=== PATIENT | male | born 1940 | race Caucasian/White ===

== ENCOUNTER → 2020-07-01 | Outpatient (CLI) | payer MEDICARE ==
--- NOTE | 2020-07-01 15:08 | REP ---
INDICATION: CLAUDICATION COMPARISON: None. TECHNIQUE: Real time diaz scale and color Doppler evaluation of the bilateral lower extremity arterial vasculature using linear high frequency transducer. FINDINGS: Diaz scale and color images demonstrate bilateral mild to moderate amounts of partially calcified atheromatous plaquing with areas of minimal narrowing but no focal stenosis identified. Doppler interrogation demonstrates predominantly bilateral biphasic and triphasic wave patterns although monophasic wave patterns are noted in the right anterior tibial artery and proximal posterior tibial artery as well as the left posterior tibial artery and distal anterior tibial artery. Left BRITTNEY: 1.4 Right BRITTNEY: Not obtainable Peak systolic velocities (cm/sec) Common femoral artery: Right 79; Left 83 Profunda femoris: Right 90; Left 73 SFA (proximal): Right 75; Left 83 SFA (mid): Right 101; Left 83-134 SFA (distal): Right 114; Left 100-136 Popliteal artery: Right 50; Left 57 JAMA (prox.): Right 66; Left 45 Tibioperoneal trunk: Right 102; Left 71 STRADDLE TRUCK OPERATOR (prox.): Right 29; Left 37 STRADDLE TRUCK OPERATOR (distal): Right 45; Left 31 JAMA (distal): Right 93; Left 101 IMPRESSION: [id number] partially calcified atheromatous changes with areas of narrowing but no obvious focal occlusion or stenosis. <Electronically signed by Mau Galo > 07/01/20 [id number]
== END ==
LOC: M RAD 13:10
PROVIDERS: ATTEND Physician Assistant
DX: I73.9 Peripheral vascular disease, unspecified (principal)

== ENCOUNTER 2022-08-08 10:51 | Inpatient (IN) | payer MEDICARE ==
[~2022-08-08] VITALS: Ht 177.8 cm; Wt 98.3 kg
[2022-08-08] VITALS (65 sets, daily range): BP systolic 64–165; BP diastolic 39–116; O2SAT 93
[2022-08-08] MEDS: NOREPINEPHRINE 4MG IN D5 250ML 4 MG in IV 1 EA IV SCH ×2 (15:15)
[2022-08-08] MEDS ORDERED: ACETAMINOPHEN TAB 650MG DOSE (2X325MG) PO PRN (15:20)
[2022-08-08 15:39] LABS: HEMATOCRIT 32.8 % (42.0-52.0); HEMOGLOBIN 10.3 g/dl (13.5-17.5); MEAN CORPUSCULAR HEMOGLOBIN 30.6 pg (27.0-33.0); MEAN CORPUSCULAR HGB CONC 31.4 g/dl (32.0-36.5); MEAN CORPUSCULAR VOLUME 97.3 fl (80.0-96.0); RED BLOOD COUNT 3.37 10^6/uL (4.30-6.10); WHITE BLOOD COUNT 4.7 10^3/uL (4.0-10.0)
[2022-08-08 15:55] LABS: BILIRUBIN,TOTAL 0.6 MG/DL (0.3-1.2); CALCIUM LEVEL 8.7 MG/DL (8.3-10.6); CREATININE FOR GFR 3.06 MG/DL (0.70-1.30); GLOMERULAR FILTRATION RATE 20.9 (>35); TOTAL PROTEIN 5.7 G/DL (5.7-8.2)
[2022-08-08 16:36] LABS: MAGNESIUM LEVEL 2.2 MG/DL (1.8-2.4)
[2022-08-08 16:41] LABS: PLATELET COUNT, AUTOMATED 72 10^3/uL (150-450)
[2022-08-08] MEDS ORDERED: FOLI1TAB11 PO (17:40)
[2022-08-08] MEDS ORDERED: D3 H2000 PO (17:40)
[2022-08-08] MEDS ORDERED: LEVO88TA3 PO (17:40)
[2022-08-08] MEDS ORDERED: SYST1SOL4 OU (17:40)
[2022-08-08] MEDS ORDERED: ACE65ERTAB PO (17:40)
[2022-08-08] MEDS ORDERED: ASPI81TA26 PO (17:40)
[2022-08-08] MEDS ORDERED: ROPI0.5T3 PO (17:40)
[2022-08-08] MEDS ORDERED: GUAI100L6 PO (17:40)
[2022-08-08] MEDS ORDERED: B-12100021 PO (17:40)
[2022-08-08] MEDS ORDERED: ELIQ2.5T PO (17:40)
[2022-08-08] MEDS ORDERED: FERR325T3 PO (17:40)
[2022-08-08] MEDS ORDERED: ALLO100T PO (17:40)
[2022-08-08] MEDS ORDERED: MELA3TAB29 PO (17:40)
[2022-08-08] MEDS ORDERED: MM S100C PO (17:40)
[2022-08-08] MEDS: MEROPENEM INJ 1 GM in IV 1 EA IV SCH (17:45)
[2022-08-08] MEDS: MIDODRINE 5 MG TAB PO SCH (17:46)
[2022-08-08] MEDS ORDERED: HOME MED LIST COMPLETE! XX SCH (17:50)
[2022-08-08] MEDS ORDERED: MIDAZOLAM INJ 2MG/2ML VIAL As Ordered ONE (17:58)
[2022-08-08] MEDS ORDERED: LIDOCAINE 1% MDV 20ML VIAL As Ordered ONE (17:59)
[2022-08-08] MEDS ORDERED: VANCOMYCIN HCL 1,000 MG, VIAL MATE ADAPTER 1 EACH in D5W 250 ML IV ONE (18:00)
[2022-08-08] MEDS ORDERED: LIDOCAINE 1% MDV 20ML VIAL SC ONE (18:15)
[2022-08-08] MEDS ORDERED: MIDAZOLAM INJ 2MG/2ML VIAL IV ONE (18:15)
[2022-08-08] MEDS ORDERED: flumazeniL 0.5MG/5ML VIAL As Ordered ONE (19:27)
[2022-08-08] MEDS ORDERED: ONDANSETRON 4MG 2ML VIAL IV PRN (20:25)
[2022-08-08] MEDS ORDERED: PERCOCET 5MG/325MG TAB PO PRN ×2 (20:25)
[2022-08-08] MEDS ORDERED: LEVALBUTEROL 1.25MG/3ML NEB SOLN NEB PRN (20:25)
[2022-08-08] MEDS ORDERED: KCL 20MEQ IN D5/NS 1000ML 1,000 ML IV SCH (20:25)
[2022-08-08] MEDS ORDERED: BISACODYL 10MG SUPP PR PRN (20:25)
[2022-08-08] MEDS: APIXABAN 2.5 MG TAB (ELIQUIS) PO SCH (21:00)
[2022-08-08] MEDS: DOCUSATE SODIUM 100MG CAPSULE PO SCH (21:00)
[2022-08-08] MEDS: allopurinoL 100 MG TAB PO SCH (21:00)
[2022-08-08] MEDS: PANTOPRAZOLE 40MG VIAL IV SCH (21:00)
[2022-08-08] MEDS: rOPINIRole 0.25 MG TAB(REQUIP) PO SCH (21:00)
[2022-08-08 21:15] LABS: PH BODY FLUID 7.448 UNITS (NOT ESTABLISHED); SOURCE, BODY FLUID pH PLEURAL
[2022-08-08 21:16] LABS: BASO # 0.1 10^3/uL (0.0-0.2); BASO % 1.5 % (0.0-1.0); EOS # 0.2 10^3/uL (0.0-0.5); EOS % 3.6 % (0.0-3.0); HEMATOCRIT 32.9 % (42.0-52.0); HEMOGLOBIN 10.3 g/dl (13.5-17.5); LYMPH # 0.6 10^3/uL (1.5-5.0); LYMPH % 9.4 % (24.0-44.0); MEAN CORPUSCULAR HEMOGLOBIN 30.3 pg (27.0-33.0); MEAN CORPUSCULAR HGB CONC 31.3 g/dl (32.0-36.5); MEAN CORPUSCULAR VOLUME 96.8 fl (80.0-96.0); MONO # 0.5 10^3/uL (0.0-0.8); MONO % 8.1 % (2.0-8.0); NEUTROPHILS # 4.5 10^3/uL (1.5-8.5); NEUTROPHILS % 76.7 % (36.0-66.0); WHITE BLOOD COUNT 5.8 10^3/uL (4.0-10.0)
[2022-08-08 21:17] LABS: APPEARANCE, BODY FLUID TURBID (CLEAR); PLEURAL FL COLOR RED (COLORLESS); SOURCE, BODY FLUID PLEURAL
[2022-08-08 21:18] LABS: PLATELET COUNT, AUTOMATED 97 10^3/uL (150-450)
[2022-08-08] MEDS ORDERED: flumazeniL 0.5MG/5ML VIAL IV STA (21:18)
[2022-08-08] MEDS ORDERED: NS 250 ML IV ONE (21:25)
[2022-08-08 21:30] LABS: SOURCE, BODY FLUID ALBUMIN PLEURAL
[2022-08-08 21:35] LABS: SOURCE, BODY FLUID GLUCOSE PLEURAL
[2022-08-08 21:36] LABS: SOURCE, BODY FLUID TRIG PLEURAL; TRIGLYCERIDE, BODY FLUID 14.99999 MG/DL (NOT ESTABLISHED)
[2022-08-08 21:37] LABS: AMYLASE, BODY FLUID 38 U/L (NOT ESTABLISHED); LDH, BODY FLUID 137 U/L (NOT ESTABLISHED); SOURCE, BODY FLUID AMYLASE PLEURAL; SOURCE, BODY FLUID LDH PLEURAL
[2022-08-08 21:38] LABS: ALBUMIN 1.9 G/DL (3.2-5.2); BILIRUBIN,TOTAL 0.6 MG/DL (0.3-1.2); CALCIUM LEVEL 8.5 MG/DL (8.3-10.6); CHOLESTEROL, BODY FLUID < 25 MG/DL (NOT ESTABLISHED); CREATININE FOR GFR 3.14 MG/DL (0.70-1.30); GLOMERULAR FILTRATION RATE 20.3 (>35); POTASSIUM SERUM 5.1 MMOL/L (3.5-5.1); SOURCE, BODY FLUID CHOL PLEURAL; SOURCE, BODY FLUID TOT PROTEIN PLEURAL; TOTAL PROTEIN 5.6 G/DL (5.7-8.2); TOTAL PROTEIN, BODY FLUID < 2.0 G/DL (NOT ESTABLISHED)
[2022-08-08 22:40] LABS: ABG BASE EXCESS -7.9 (-2.0-2.0); ABG HCO3 15.3 MMOL/L (22.0-26.0); ABG O2 SATURATION 94.1 % (95.0-99.0); ABG PARTIAL PRESSURE CO2 25.1 mmHg (35.0-45.0); ABG PARTIAL PRESSURE O2 71.5 mmHg (75.0-100.0); ABG TOTAL CO2 16.1 MMOL/L (23.0-31.0); ABG pH (ARTERIAL) 7.404 UNITS (7.350-7.450)
[2022-08-09] VITALS (97 sets, daily range): BP systolic 71–178; BP diastolic 46–90
[2022-08-09] MEDS: LEVALBUTEROL 1.25MG/3ML NEB SOLN NEB SCH ×4 (01:13→19:19)
[2022-08-09] MEDS: LIDOCAINE 5% (LIDODERM) PATCH TD SCH ×2 (03:22→08:24)
[2022-08-09 05:31] LABS: BASO # 0.1 10^3/uL (0.0-0.2); BASO % 1.2 % (0.0-1.0); EOS # 0.2 10^3/uL (0.0-0.5); EOS % 2.2 % (0.0-3.0); HEMATOCRIT 32.1 % (42.0-52.0); HEMOGLOBIN 10.1 g/dl (13.5-17.5); LYMPH # 0.7 10^3/uL (1.5-5.0); MEAN CORPUSCULAR HEMOGLOBIN 30.6 pg (27.0-33.0); MEAN CORPUSCULAR HGB CONC 31.5 g/dl (32.0-36.5); MEAN CORPUSCULAR VOLUME 97.3 fl (80.0-96.0); MONO # 0.7 10^3/uL (0.0-0.8); MONO % 10.2 % (2.0-8.0); NEUTROPHILS # 5.5 10^3/uL (1.5-8.5); NEUTROPHILS % 75.7 % (36.0-66.0); PLATELET COUNT, AUTOMATED 106 10^3/uL (150-450); WHITE BLOOD COUNT 7.2 10^3/uL (4.0-10.0)
[2022-08-09] MEDS: MEROPENEM INJ 1 GM in IV 1 EA IV SCH ×2 (05:35→16:27)
[2022-08-09 05:38] LABS: ABG BASE EXCESS -8.3 (-2.0-2.0); ABG HCO3 15.2 MMOL/L (22.0-26.0); ABG O2 SATURATION 98.1 % (95.0-99.0); ABG PARTIAL PRESSURE CO2 25.8 mmHg (35.0-45.0); ABG PARTIAL PRESSURE O2 109.8 mmHg (75.0-100.0); ABG STANDARD HCO3 17.7 MMOL/L. (22.0-26.0); ABG pH (ARTERIAL) 7.388 UNITS (7.350-7.450)
[2022-08-09 05:53] LABS: CALCIUM LEVEL 8.3 MG/DL (8.3-10.6); CREATININE FOR GFR 3.31 MG/DL (0.70-1.30); GLOMERULAR FILTRATION RATE 19.1 (>35); POTASSIUM SERUM 5.1 MMOL/L (3.5-5.1)
[2022-08-09] MEDS: LEVOTHYROXINE 88MCG TABLET (0.088 MG) PO SCH (06:00)
[2022-08-09 07:34] LABS: VANCOMYCIN RANDOM 20.3 UG/ML
[2022-08-09] MEDS ORDERED: AMIODARONE HCL 150 MG in IV 1 EA IV ONE (08:00)
[2022-08-09] MEDS: FOLIC ACID 1MG TAB PO SCH ×2 (08:24→08:49)
[2022-08-09] MEDS: MOM 30ML SUSPENSION UDC PO SCH ×2 (08:24→08:49)
[2022-08-09] MEDS: DOCUSATE SODIUM 100MG CAPSULE PO SCH ×3 (08:24→21:00)
[2022-08-09] MEDS: PANTOPRAZOLE 40MG VIAL IV SCH (08:24)
[2022-08-09] MEDS: FERROUS SULFATE 325MG TAB PO SCH ×2 (08:24→08:49)
[2022-08-09] MEDS: allopurinoL 100 MG TAB PO SCH ×3 (08:24→21:00)
[2022-08-09] MEDS: MIDODRINE 5 MG TAB PO SCH ×3 (08:25→15:53)
[2022-08-09] MEDS: APIXABAN 2.5 MG TAB (ELIQUIS) PO SCH ×2 (08:25→21:00)
[2022-08-09] MEDS: ASPIRIN 81MG ENTERIC TABLET PO SCH (08:25)
[2022-08-09] MEDS ORDERED: AMIODARONE HCL 360 MG in IV 1 EA IV SCH (08:30)
[2022-08-09] MEDS ORDERED: VANCOMYCIN HCL 1,000 MG, VIAL MATE ADAPTER 1 EACH in D5W 250 ML IV SCH (09:00)
[2022-08-09] MEDS ORDERED: VANCOMYCIN INTERMITTENT/PULSE DOSING BY CLINICAL PHARMACIST PER DOSING PROTOCOL XX SCH (12:40)
[2022-08-09] MEDS: AMIODARONE HCL 360 MG in IV 1 EA IV SCH (15:01)
[2022-08-09] MEDS ORDERED: VANCOMYCIN HCL 1,000 MG, VIAL MATE ADAPTER 1 EACH in D5W 250 ML IV ONE (18:00)
[2022-08-09] MEDS: rOPINIRole 0.25 MG TAB(REQUIP) PO SCH (21:00)
[2022-08-10] VITALS (28 sets, daily range): BP systolic 80–135; BP diastolic 49–79
[2022-08-10] MEDS: AMIODARONE HCL 360 MG in IV 1 EA IV SCH (02:35)
[2022-08-10] MEDS: LEVALBUTEROL 1.25MG/3ML NEB SOLN NEB SCH ×2 (02:55→07:33)
[2022-08-10] MEDS: NOREPINEPHRINE 4MG IN D5 250ML 4 MG in IV 1 EA IV SCH ×2 (04:15)
[2022-08-10] MEDS: MEROPENEM INJ 1 GM in IV 1 EA IV SCH (04:49)
[2022-08-10 05:09] LABS: BASO # 0.1 10^3/uL (0.0-0.2); BASO % 0.6 % (0.0-1.0); EOS # 0.2 10^3/uL (0.0-0.5); EOS % 2.7 % (0.0-3.0); HEMATOCRIT 31.5 % (42.0-52.0); LYMPH # 0.6 10^3/uL (1.5-5.0); LYMPH % 7.9 % (24.0-44.0); MEAN CORPUSCULAR HGB CONC 31.7 g/dl (32.0-36.5); MEAN CORPUSCULAR VOLUME 97.5 fl (80.0-96.0); MONO # 0.5 10^3/uL (0.0-0.8); NEUTROPHILS # 6.5 10^3/uL (1.5-8.5); NEUTROPHILS % 82.3 % (36.0-66.0); RED BLOOD COUNT 3.23 10^6/uL (4.30-6.10); WHITE BLOOD COUNT 7.8 10^3/uL (4.0-10.0)
[2022-08-10 05:10] LABS: PLATELET COUNT, AUTOMATED 97 10^3/uL (150-450)
[2022-08-10 05:40] LABS: CALCIUM LEVEL 8.3 MG/DL (8.3-10.6); CREATININE FOR GFR 3.48 MG/DL (0.70-1.30); POTASSIUM SERUM 4.5 MMOL/L (3.5-5.1)
[2022-08-10] MEDS: LEVOTHYROXINE 88MCG TABLET (0.088 MG) PO SCH (06:21)
[2022-08-10] MEDS: ASPIRIN 81MG ENTERIC TABLET PO SCH (08:58)
[2022-08-10] MEDS: PANTOPRAZOLE 40MG VIAL IV SCH (08:58)
[2022-08-10] MEDS: APIXABAN 2.5 MG TAB (ELIQUIS) PO SCH (08:58)
[2022-08-10] MEDS: DOCUSATE SODIUM 100MG CAPSULE PO SCH (08:59)
[2022-08-10] MEDS: MIDODRINE 5 MG TAB PO SCH ×2 (08:59→12:54)
[2022-08-10] MEDS: allopurinoL 100 MG TAB PO SCH (08:59)
[2022-08-10] MEDS ORDERED: AMIODARONE 200 MG TAB (PACERONE) PO SCH (09:00)
[2022-08-10] MEDS: MOM 30ML SUSPENSION UDC PO SCH (09:00)
[2022-08-10] MEDS: FOLIC ACID 1MG TAB PO SCH (09:41)
[2022-08-10] MEDS: FERROUS SULFATE 325MG TAB PO SCH (09:41)
[2022-08-10] MEDS: LIDOCAINE 5% (LIDODERM) PATCH TD SCH (09:42)
[2022-08-10] MEDS ORDERED: ATIV1TAB10 PO ×2 (11:11→13:04)
[2022-08-10] MEDS ORDERED: MORP1SOL5 PO ×2 (11:11→13:04)
[2022-08-10] MEDS ORDERED: HYOS125TA PO ×2 (11:11→13:04)
== END 2022-08-10 13:07 | disposition hospice, home (50) | DRG 871 ==
LOC: M ICU 15:02
PROVIDERS: ADMIT Internal Medicine Pulmonary Disease; ATTEND Internal Medicine
PROC: 0W9900Z Drainage of Right Pleural Cavity with Drainage Device, Open Approach (ICD-10-PCS; 2022-08-08)
PROC: B246ZZZ Ultrasonography of Right and Left Heart (ICD-10-PCS; principal; 2022-08-09)
DX: A41.9 Sepsis, unspecified organism (principal); R65.21 Severe sepsis with septic shock; R57.0 Cardiogenic shock; K76.7 Hepatorenal syndrome; J18.9 Pneumonia, unspecified organism; I13.0 Hypertensive heart and chronic kidney disease with heart failure and stage 1 through stage 4 chronic kidney disease, or unspecified chronic kidney disease; R18.8 Other ascites; N17.9 Acute kidney failure, unspecified; J90 Pleural effusion, not elsewhere classified; L97.329 Non-pressure chronic ulcer of left ankle with unspecified severity; L97.319 Non-pressure chronic ulcer of right ankle with unspecified severity; E87.4 Mixed disorder of acid-base balance; E46 Unspecified protein-calorie malnutrition; I48.91 Unspecified atrial fibrillation; I50.9 Heart failure, unspecified; K74.60 Unspecified cirrhosis of liver; E03.9 Hypothyroidism, unspecified; I35.0 Nonrheumatic aortic (valve) stenosis; Z66 Do not resuscitate; N18.30 Chronic kidney disease, stage 3 unspecified; M10.9 Gout, unspecified; I87.2 Venous insufficiency (chronic) (peripheral); R04.0 Epistaxis; I27.29 Other secondary pulmonary hypertension; Z85.528 Personal history of other malignant neoplasm of kidney; K72.90 Hepatic failure, unspecified without coma; D69.6 Thrombocytopenia, unspecified; Z90.5 Acquired absence of kidney; Z79.899 Other long term (current) drug therapy